=== PATIENT | female | born 1955 | race Caucasian/White ===

== ENCOUNTER 2019-05-03 06:53 | Inpatient (IN) | payer OTHER ==
[2019-05-03] MEDS: ONDANSETRON 4 MG INJ IV ×3 (08:36→20:18)
[2019-05-03] MEDS: DEXAMETHASONE 4 MG/ML 1 ML INJ IV (08:36)
[2019-05-03] MEDS: ACETAMINOPHEN 1000MG/100ML IV 100 ML IVPB (08:36)
[2019-05-03] MEDS: oxyCODONE (CR) 10 MG TAB [oxyCONTIN] PO (08:37)
[2019-05-03] MEDS: LANSOPRAZOLE 30 MG CAP PO (08:37)
[2019-05-03] MEDS: LACTATED RINGER'S 1,000 ML IV (08:37)
[2019-05-03] MEDS: CEFAZOLIN 1 GM/50 ML (PMX) 50 ML IVPB (09:30)
[2019-05-03] MEDS: TRANEXAMIC ACID 1GM/100ML(PMX) 100 ML PRE-OP X1 IVPB (09:30)
[2019-05-03] MEDS ORDERED: POLYMYXIN B 500000 UNIT INJ (10:40)
[2019-05-03] MEDS ORDERED: DIPHENHYDRAMINE 50 MG INJ IV (11:00)
[2019-05-03] MEDS ORDERED: FENTAnyl 50 MCG/ML VIAL IV ×3 (11:00)
[2019-05-03] MEDS ORDERED: ONDANSETRON 4 MG INJ IV (11:00)
[2019-05-03] MEDS ORDERED: HYDROmorphONE 1 MG/5 ML IV SYRINGE IV ×3 (11:00)
[2019-05-03] MEDS ORDERED: MEPERIDINE 25 MG INJ IV (11:00)
[2019-05-03] MEDS ORDERED: ONDANSETRON 4 MG INJ (11:07)
[2019-05-03] MEDS ORDERED: CEFAZOLIN 1 GM INJ (11:07)
[2019-05-03] MEDS ORDERED: morphine SULFATE/PF (10 MG/10 ML) INJ (11:07)
[2019-05-03] MEDS ORDERED: PROPOFOL 20 ML (11:07)
[2019-05-03] MEDS ORDERED: MIDAZOLAM 1 MG/ML 2 ML INJ (11:07)
[2019-05-03] MEDS ORDERED: METOCLOPRAMIDE 10 MG INJ (11:07)
[2019-05-03] MEDS: HIP PAIN COCKTAIL VANCO INJ (12:02)
[2019-05-03] MEDS: TRANEXAMIC ACID 1GM/100ML(PMX) 100 ML INTRA-OP X1 IVPB ×2 (12:04→13:05)
[2019-05-03] MEDS: TRANEXAMIC ACID 1GM/100ML(PMX) 100 ML (12:04)
[2019-05-03] MEDS ORDERED: TRANEXAMIC ACID 1GM/100ML(PMX) 100 ML (12:42)
[2019-05-03] MEDS ORDERED: ROPIVACAINE 0.2% 20 ML VIAL (12:57)
[2019-05-03] MEDS ORDERED: EPHEDrine 25 MG/5 ML SYG ×2 (12:57)
[2019-05-03] MEDS ORDERED: NA PHOSPHATE/BIPHOS 133 ML ENEMA PR (13:30)
[2019-05-03] MEDS ORDERED: BISACODYL 10 MG SUPP PR (13:30)
[2019-05-03] MEDS ORDERED: NACL 0.9% 3 ML SYG IV (13:30)
[2019-05-03] MEDS ORDERED: NALOXONE (0.4 MG/ML) INJ IV (13:30)
[2019-05-03] MEDS: DOCUSATE SODIUM 100 MG CAP PO (14:28)
[2019-05-03] MEDS: ARTIFICIAL TEARS 15 ML OPH BOTH EYES (16:59)
[2019-05-03] MEDS ORDERED: NAPHAZOLINE 0.012% 15 ML OPH BOTH EYES (17:00)
[2019-05-03] MEDS: KETOROLAC 15 MG INJ IV (18:33)
[2019-05-03] MEDS: CEFAZOLIN 2 GM/50 ML (PMX) 50 ML IVPB (18:56)
[2019-05-03] MEDS: GABAPENTIN 100 MG CAP PO (20:19)
[2019-05-04] MEDS: ONDANSETRON 4 MG INJ IV ×2 (01:30→08:54)
[2019-05-04] MEDS: KETOROLAC 15 MG INJ IV ×3 (02:20→15:07)
[2019-05-04] MEDS: CEFAZOLIN 2 GM/50 ML (PMX) 50 ML IVPB ×3 (02:20→19:48)
[2019-05-04 05:08] LABS: ADD MAN DIFF? NO
[2019-05-04 05:14] LABS: BASOPHILS % 0.1 % (0.0-2.0); EOSINOPHILS % 0.1 % (0.0-7.0); HEMATOCRIT 33.9 % (37.0-47.0); HEMOGLOBIN 10.8 g/dl (12.0-16.0); LYMPHOCYTES # 1.3 10^3/ul (0.8-2.9); LYMPHOCYTES % 9.1 % (15.0-51.0); MEAN CORPUSCULAR HEMOGLOBIN 28.6 pg (29.0-33.0); MEAN CORPUSCULAR HGB CONC 31.9 g/dl (32.0-37.0); MEAN CORPUSCULAR VOLUME 89.9 fl (82.0-101.0); MEAN PLATELET VOLUME 10.5 fl (7.4-10.4); MONOCYTE # 0.9 10^3/ul (0.3-0.9); MONOCYTES % 6.6 % (0.0-11.0); NEUTROPHIL # 11.7 10^3/ul (1.6-7.5); NEUTROPHILS % 83.6 % (39.0-77.0); PLATELET COUNT 227 10^3/UL (140-415); RED BLOOD COUNT 3.77 10^6/ul (4.20-5.40); RED CELL DISTRIBUTION WIDTH 13.8 % (11.5-14.5)
[2019-05-04 05:32] LABS: ANION GAP 5 (5-13); BLOOD UREA NITROGEN 18 mg/dl (7-20); CALCIUM 8.6 mg/dl (8.4-10.2); CARBON DIOXIDE 29 mmol/L (21-31); CHLORIDE 107 mmol/L (97-110); CREATININE 0.52 mg/dl (0.44-1.00); Estimated GFR > 60 mL/min (>60); GLUCOSE 138 mg/dl (70-220); POTASSIUM 4.2 mmol/L (3.5-5.1); SODIUM 141 mmol/L (135-144)
[2019-05-04] MEDS: ARTIFICIAL TEARS 15 ML OPH BOTH EYES ×2 (06:15→15:12)
[2019-05-04] MEDS: oxyCODONE 5 MG TAB PO ×3 (06:19→19:50)
[2019-05-04] MEDS: CELECOXIB 100 MG CAP PO ×2 (08:55→21:46)
[2019-05-04] MEDS: ASPIRIN (EC) 81 MG TAB PO ×2 (08:55→21:49)
[2019-05-04] MEDS: DOCUSATE SODIUM 100 MG CAP PO ×2 (08:55→21:46)
[2019-05-04] MEDS: GABAPENTIN 100 MG CAP PO ×3 (08:55→21:46)
[2019-05-04] MEDS: CIPROFLOXACIN 0.3% 2.5 ML OPH BOTH EYES ×2 (13:00→19:48)
[2019-05-04] MEDS: DIPHENHYDRAMINE 25 MG CAP PO (13:12)
[2019-05-04] MEDS: SENNA/DOCUSATE NA (8.6MG/50MG) TAB PO (13:12)
[2019-05-05] MEDS: oxyCODONE 5 MG TAB PO ×5 (01:26→19:55)
[2019-05-05] MEDS: KETOROLAC 15 MG INJ IV ×3 (02:59→18:26)
[2019-05-05] MEDS: MAGNESIUM HYDROXIDE 30ML CUP PO (03:07)
[2019-05-05 05:09] LABS: ADD MAN DIFF? NO
[2019-05-05 05:15] LABS: WHITE BLOOD COUNT 9.3 10^3/ul (4.8-10.8)
[2019-05-05 05:15] LABS: BASOPHIL # 0.1 10^3/ul (0.0-0.1); BASOPHILS % 0.5 % (0.0-2.0); EOSINOPHILS # 0.2 10^3/ul (0.0-0.5); EOSINOPHILS % 1.6 % (0.0-7.0); HEMATOCRIT 34.3 % (37.0-47.0); HEMOGLOBIN 11.1 g/dl (12.0-16.0); LYMPHOCYTES # 2.1 10^3/ul (0.8-2.9); LYMPHOCYTES % 22.2 % (15.0-51.0); MEAN CORPUSCULAR HGB CONC 32.4 g/dl (32.0-37.0); MEAN CORPUSCULAR VOLUME 89.6 fl (82.0-101.0); MEAN PLATELET VOLUME 10.6 fl (7.4-10.4); MONOCYTE # 0.7 10^3/ul (0.3-0.9); NEUTROPHIL # 6.3 10^3/ul (1.6-7.5); NEUTROPHILS % 68.4 % (39.0-77.0); PLATELET COUNT 214 10^3/UL (140-415); RED BLOOD COUNT 3.83 10^6/ul (4.20-5.40); RED CELL DISTRIBUTION WIDTH 13.9 % (11.5-14.5)
[2019-05-05 05:37] LABS: ANION GAP 4 (5-13); BLOOD UREA NITROGEN 12 mg/dl (7-20); CALCIUM 8.6 mg/dl (8.4-10.2); CARBON DIOXIDE 33 mmol/L (21-31); CHLORIDE 104 mmol/L (97-110); CREATININE 0.55 mg/dl (0.44-1.00); Estimated GFR > 60 mL/min (>60); GLUCOSE 113 mg/dl (70-220); POTASSIUM 4.2 mmol/L (3.5-5.1); SODIUM 141 mmol/L (135-144)
[2019-05-05] MEDS: PANTOPRAZOLE (EC) 40 MG TAB PO (06:38)
[2019-05-05] MEDS: CELECOXIB 100 MG CAP PO ×2 (09:09→19:55)
[2019-05-05] MEDS: DOCUSATE SODIUM 100 MG CAP PO ×2 (09:09→19:55)
[2019-05-05] MEDS: CIPROFLOXACIN 0.3% 2.5 ML OPH BOTH EYES (09:09)
[2019-05-05] MEDS: ASPIRIN (EC) 81 MG TAB PO ×2 (09:09→19:54)
[2019-05-05] MEDS: GABAPENTIN 100 MG CAP PO ×3 (09:09→19:55)
== END 2019-05-05 21:35 | DRG 470 ==
LOC: REC 06:53 → MS1 15:28
PROC: 0SRD069 Replacement of Left Knee Joint with Oxidized Zirconium on Polyethylene Synthetic Substitute, Cemented, Open Approach (ICD-10-PCS; principal; 2019-05-03 11:00)
DX: M17.12 Unilateral primary osteoarthritis, left knee (principal); I10 Essential (primary) hypertension; E78.5 Hyperlipidemia, unspecified; E66.9 Obesity, unspecified; Z68.34 Body mass index [BMI] 34.0-34.9, adult; F17.200 Nicotine dependence, unspecified, uncomplicated; F32.9 Major depressive disorder, single episode, unspecified; M81.0 Age-related osteoporosis without current pathological fracture; M19.90 Unspecified osteoarthritis, unspecified site
CPT/HCPCS: 73560; 80048; 85025; 88304; 88311; 97116; 97161; 97530